=== PATIENT | male | born 1995 | race African-American/Black ===

== ENCOUNTER 2020-01-16 01:54 | Emergency (ER) | payer SELFPAY ==
[~2020-01-16] VITALS: Ht 180.3 cm; Wt 68.0 kg
[2020-01-16 02:09] VITALS: BP 135/70
--- NOTE | 2020-01-16 03:20 | NUR ---
Left hand third digit splint application: thumb splint; applied by the EMT Circulation check done; good capillary refill, less than 3 seconds
--- NOTE | 2020-01-16 03:39 | NUR ---
Patient discharged to home in stable condition. Written and verbal after care instructions given. Patient verbalizes understanding of instruction. Pt ambulatory with a steady gait
== END 2020-01-16 03:40 | disposition home or self-care (01) ==
LOC: ER 02:01
DX: S56.49 Other injury of extensor muscle, fascia and tendon of other and unspecified finger at forearm level (principal); Y04.8XXA Assault by other bodily force, initial encounter; Y93.89 Activity, other specified; Y92.89 Other specified places as the place of occurrence of the external cause; Y99.8 Other external cause status
CPT/HCPCS: 73130-TC